=== PATIENT | male | born 1965 | race Caucasian/White ===

== ENCOUNTER 2018-06-21 17:16 | Emergency (ER) | payer OTHER ==
[2018-06-21 17:20] VITALS: BP 128/77
[2018-06-21] MEDS ORDERED: CRESTOR20 M2 PO (17:23)
--- NOTE | 2018-06-21 17:25 | ED UPPER/LOWER EXTREMITY COMPL ---
History of Present Illness General Chief Complaint: Lower Extremity Problems Stated Complaint: RT LEG CELLULITIS Source: patient Exam Limitations: no limitations Vital Signs & Intake/Output Vital Signs & Intake/Output Vital Signs Date Time Temp Pulse Resp B/P B/P Pulse O2 O2 Flow FiO2 Mean Ox Delivery Rate 06/21 1720 99.2 108 17 128/77 97 Room Air Allergies Uncoded Allergies: Allergy Other NKA Med Allergies NKDA Reconcile Medications Cephalexin (Keflex) 500 MG CAPSULE 1 CAP PO 4 TIMES/DAY CELLULITIS Rosuvastatin Calcium (Crestor) 20 MG TABLET 20 MG PO DAILY CHOLESTEROL ( Reported) Triage Note: PT TO ED WITH C/O REDNESS, WARMTH TO RIGHT ALMAZAN NOTICED LAST NIGHT. REPORTS HX OF CELLULITIS. SUBJECTIVE FEVER AT HOME. Triage Nurses Notes Reviewed? yes Onset: Abrupt Duration: day(s): (1), constant, continues in ED Timing: recent history Severity: moderate, severe HPI: 52-year-old male comes into the emergency room with redness and pain to his right anterior almazan. Patient has a history of cellulitis reports it feels the same. It's been present for about 24 hours. Subjective fever. Denies any history of diabetes. Denies any trauma to his leg. He comes in for further evaluation. Past History Travel History Traveled to [place] past 21 day No Medical History Any Pertinent Medical History? see below for history Cardiovascular: HIGH CHOLESTEROL Surgical History Surgical History: non-contributory Psychosocial History What is your primary language Russian Tobacco Use: Quit >30 days ago ETOH Use: denies use Family History Hx Contributory? No Review of Systems Review of Systems Constitutional: Reports: no symptoms. EENTM: Reports: no symptoms. Respiratory: Reports: no symptoms. Cardiovascular: Reports: no symptoms. Gastrointestinal/Abdominal: Reports: no symptoms. Genitourinary: Reports: no symptoms. Musculoskeletal: Reports: no symptoms. Skin: Reports: see HPI. Neurological/Psychological: Reports: no symptoms. Hematologic/Endocrine: Reports: no symptoms. Immunological: Reports: no symptoms. All Other Systems: Reviewed and Negative Physical Exam Physical Exam General Appearance: well developed/nourished, mild distress Head: atraumatic Eyes: Bilateral: normal appearance. Ears, Nose, Throat: normal ENT inspection, hearing grossly normal Neck: normal inspection Cardiovascular/Respiratory: no respiratory distress Back: normal inspection Leg Right: large erythematous patch approximately 18 cm x 20 cm, blanchable, warm to touch, Neurologic/Tendon: normal sensation, normal motor functions Skin: intact, normal color, warm/dry Progress Differential Diagnosis: cellulitis, DVT, septic arthritis Plan of Care: 06/21/2018 5:24:40 PM Patient clinically looks well. Nontoxic-appearing. Symptoms are most consistent with cellulitis. Patient was instructed to return in 3 days for a wound check. Return sooner if any other spreading of redness or other worsening symptoms. Comments: 06/21/2018 6:38:42 PM Patient clinically looks well. In no apparent distress. Nontoxic-appearing. Started on oral antibiotics. Return in 3 days for a wound check. Departure Departure Disposition: HOME OR SELF CARE Condition: Stable Clinical Impression Primary Impression: Cellulitis of right lower extremity Referrals: Margarita BROWN,Eladio Marsh (PCP/Family) Additional Instructions: Take Keflex as prescribed. Return in 3 days for wound check. Return sooner if any other concerns worsening symptoms. Please go over all results of today's visit with your primary care doctor. Contact your primary care doctor to let them know you were here in the emergency room. There may be nonspecific findings which may not be related to your visit today here in the emergency room but may require further evaluation and chronic monitoring by your primary care doctor. If you had a laceration today the chance of foreign body always remains. You should follow-up with your primary care doctor for recheck in 3-5 days for a wound check. If you had an x-ray done there is a chance that a fracture could have been missed on initial read and you should follow-up with your primary care doctor for repeat x-rays if symptoms persist. If your blood pressure was elevated here in the emergency room please have rechecked by [facility] primary care doctor within the next 48. If you were prescribed a narcotic here in the emergency room or any type of controlled substances you're not allowed to drive while taking this medication or operate any type of heavy machinery. Narcotics can make you feel lightheaded dizziness nausea and can cause constipation. You may need to miner pick a stool softener. Thank you for choosing [facility] emergency room. Please return to the emergency room immediately if you have any other concerns worsening of symptoms. Departure Forms: Customer Survey General Discharge Information Prescriptions: Current Visit Scripts Cephalexin (Keflex) 1 CAP PO 4 TIMES/DAY #40 CAP
[2018-06-21] MEDS ORDERED: KEFLEX500 M1 PO (17:28)
== END 2018-06-21 17:37 ==
LOC: ERH 17:16
DX: L03.115 Cellulitis of right lower limb (principal); Z87.891 Personal history of nicotine dependence